=== PATIENT | female | born 2000 | race Caucasian/White ===

== ENCOUNTER → 2022-02-07 | Day surgery (SDC) | payer OTHER ==
[~2022-02-07] MED LIST: COLACE100 MG PO; IBUPROFEN600 MG PO; KEFLEX CAP 500500 MG PO; PERCOCET 5/325 T1 EA PO; PRENATAL VITAM1 EAC6 PO; PROBIOTIC PO; ZOFRAN ODT 4 MG4 MG PO
== END | disposition home or self-care (01) ==
LOC: OR 05:58
DX: K64.8 Other hemorrhoids (principal); F17.290 Nicotine dependence, other tobacco product, uncomplicated
CPT/HCPCS: 84703; J2704